=== PATIENT | female | born 1970 | race American Indian/Alaskan Native ===

== ENCOUNTER 2017-05-22 10:06 | Outpatient (CLI) | payer OTHER ==
--- NOTE | 2017-05-22 11:17 | Ultrasound Report ---
ULTRASOUND PELVIC COMPLETE ULTRASOUND TRANSVAGINAL HISTORY: Fullness of female pelvic organs, fibroid disease. TECHNIQUE: Transabdominal and transvaginal ultrasound with color and spectral doppler interrogation. The uterus is enlarged and heterogeneous measuring 14 x 7 x 9 cm. Multiple uterine masses are identified consistent with fibroids. There are 2 intramural fibroids in the posterior wall measuring 3.9 cm and 1.8 cm. There are 2 intramural fibroids in the anterior fundal region measuring 2.7 cm and 1.7 cm. The endometrial stripe is within normal limits measuring 13 mm. The right ovary is unremarkable and measures 2.7 x 1.3 x 3.1 cm. The left ovary measures 3.8 x 2.4 x 3.5 cm and contains a 2.2 cm cyst. No pelvic fluid collection IMPRESSION: Uterine fibroid disease as described above. 2.2 cm left ovarian cyst.
== END 2017-05-22 10:07 | disposition home or self-care (01) ==
LOC: US 10:06
PROVIDERS: ATTEND Internal Medicine
DX: D25.2 Subserosal leiomyoma of uterus (principal); N83.202 Unspecified ovarian cyst, left side
CPT/HCPCS: 76830; 76856